=== PATIENT | male | born 1970 | race Caucasian/White ===

== ENCOUNTER 2017-07-29 16:12 | Emergency (ER) | payer OTHER ==
[2017-07-29 16:25] VITALS: RESP 16; TEMP 97.9
--- NOTE | 2017-07-29 17:52 | EDPHY ---
H & P Time Seen by Provider: 07/29/17 17:24 HPI/ROS: CHIEF COMPLAINT: Swollen lymph node HISTORY OF PRESENT ILLNESS: The patient is a 47-year-old male who presents to the emergency department reporting swollen lymph nodes on his anterior chest. Patient states he noticed small bumps over his sternum for the 1st time today. He recently had blood work which was normal. He denies any fevers or chills. No weight loss. No chest pain or shortness of breath. No other lymph nodes noted elsewhere. Patient states "I am a bit of a hypochondriac." REVIEW OF SYSTEMS: My complete review of systems is negative except as mentioned in the HPI. Past Medical/Surgical History: High cholesterol Past surgical history: Tonsillectomy, wisdom teeth Social history: Patient does not smoke Family history: The patient's mother had lung cancer. The patient's had breast cancer. Smoking Status: Never smoked Physical Exam: Vitals noted GENERAL: Well-appearing, in no acute distress, alert. HEENT: Eyes normal to inspection, normal pharynx, no signs of dehydration. NECK: [No thyromegaly, no lymphadenopathy, supple. RESPIRATORY: Clear to auscultation bilaterally, no rales, rhonchi or wheezing. CVS: Regular rate and rhythm, no rubs, murmurs, or gallops. Chest: Patient's chest appears normal. There is no mass or swelling. No erythema or warmth. No rash. I do not palpate any lymphadenopathy anteriorly. Patient is palpating his ribs when he states he is feeling the bumps. I feel slight irregularities but this seems consistent with rib. ABDOMEN: Soft, nontender, nondistended, no organomegaly. BACK: Normal to inspection, no CVA tenderness. SKIN: Normal color, no rash, warm, dry. No pallor. EXTREMITIES: No pedal edema, no calf tenderness, no Homans sign or cords, no joint swelling. NEURO/PSYCH: Alert and oriented x3, normal mood and affect, normal motor sensory exam. No obvious cranial nerve deficit. Constitutional: Initial Vital Signs Temperature (C) 36.6 C 07/29/17 16:22 Heart Rate 86 07/29/17 16:22 Respiratory Rate 16 07/29/17 16:22 Blood Pressure 130/75 H 07/29/17 16:22 O2 Sat (%) 98 12/24/17 16:22 O2 Delivery Mode Room Air Allergies/Adverse Reactions: Penicillins Allergy (Unknown, Unverified 07/29/17 16:21) Home Medications: Medication Instructions Recorded Atorvastatin Calcium [Lipitor 20 20 mg PO DAILY 07/29/17 mg (*)] Medical Decision Making ED Course/Re-evaluation: In the emergency department I discussed possible etiologies with the patient. At this time I do not feel he needs imaging or laboratory studies. I recommended the patient continue to feel the mass once a day for the next 2 weeks. He should then follow up with his primary care physician and informed him of his findings. He will return to the emergency department if he develops increasing swelling, fever, shortness of breath, rash or any other concerns. Differential Diagnosis: My differential includes but is not limited to lymphadenopathy, malignancy, abscess, cellulitis, normal exam Departure - Departure Disposition: Home, Routine, Self-Care Clinical Impression: Chest wall mass Condition: Good Instructions: Lymphadenopathy (ED) Additional Instructions: You should feel your chest once a day for the next 2 weeks. Follow up with Dr. Sherman and let him know of the masses changing size or shape. Return to the emergency department if you developed increased pain, swelling, redness, fever, shortness of breath or any other concerns. Referrals: Reuben Sherman MD [Primary Care Provider] - 5-7 days, if not improved
[2017-07-29 18:06] VITALS: BP 135/80; PULSE 66; O2SAT 95
== END 2017-07-29 18:06 | disposition home or self-care (01) ==
DX: R22.2 Localized swelling, mass and lump, trunk (principal)

== ENCOUNTER → 2017-09-06 | Outpatient (CLI) | payer OTHER | LOC: BMCIMAGING 07:14 | PROVIDERS: ATTEND Internal Medicine | DX: R22.1 Localized swelling, mass and lump, neck (principal) | CPT/HCPCS: 76536-PO ==

== ENCOUNTER → 2018-08-30 | Outpatient (CLI) | payer OTHER | LOC: BMCIMAGING 08:13 | PROVIDERS: ATTEND Physician Assistant Medical | DX: E04.1 Nontoxic single thyroid nodule (principal) | CPT/HCPCS: 76536-PO ==

== ENCOUNTER 2018-12-12 09:08 | Observation (INO) | payer OTHER ==
[2018-12-12 09:47] LABS: PLATELET COUNT 244 10^3/uL (150-400)
--- NOTE | 2018-12-12 09:59 | EDPHY ---
H & P Time Seen by Provider: 12/12/18 09:59 HPI/ROS: Chief complaint. Chest tightness HPI. 48-year-old male with chest pain for the past 3-4 days. 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 Training increased started 4 days ago. 3 days ago he started feeling heart palpitations. Since that time he has had fatigue and anxiety and left arm tingling with left anterior chest tightness. Symptoms are worse with walking. Better with lying down. History of SVT with ablation attempts x2. Increase calcium score and has been on a statin for 1 year no fever cough. No unusual leg pain or swelling ROS 10 systems were reviewed and negative with the exception of the elements mentioned in the history of present illness Past Medical/Surgical History: Family history negative for early coronary artery disease though strong history of dyslipidemia Dyslipidemia, SVT Social History: , nonsmoker, no alcohol Smoking Status: Never smoked Physical Exam: General Appearance: Alert well-developed male mild distress vital signs are stable Eyes: Pupils equal and round no pallor or injection. ENT, Mouth: Mucous membranes are moist. Respiratory: There are no retractions, lungs are clear to auscultation. Cardiovascular: Regular rate and rhythm. Gastrointestinal: Abdomen is soft and nontender, no masses, bowel sounds normal. Neurological: Awake and alert, sensory and motor exams grossly normal. Skin: Warm and dry, no rashes. Musculoskeletal: Neck is supple nontender. Extremities symmetrical, full range of motion. Psychiatric: Patient is oriented X 3, there is no agitation. Constitutional: Initial Vital Signs Temperature (C) 36.4 C 12/12/18 09:16 Heart Rate 71 12/12/18 09:16 Respiratory Rate 16 12/12/18 09:16 Blood Pressure 155/89 H 12/12/18 09:16 O2 Sat (%) 99 12/12/18 09:16 O2 Delivery Mode Room Air Allergies/Adverse Reactions: Penicillins Allergy (Unknown, Unverified 12/12/18 12:00) Hives bee stings Allergy (Uncoded 12/12/18 12:00) Home Medications: Medication Instructions Recorded Atorvastatin Calcium [Lipitor 20 20 mg PO DAILY@1730 07/29/17 mg (*)] ALPRAZolam [Xanax 0.5 MG (*)] 0.5 mg PO DAILY PRN 12/12/18 Acetaminophen [Tylenol 325mg (*)] 325 mg PO Q6 PRN 12/12/18 Aspirin [Aspirin 81mg (*)] 81 mg PO DAILY@1730 12/12/18 EPINEPHrine [Epipen 0.3 MG] 0.3 mg IM ONCE PRN 12/12/18 Medical Decision Making - Diagnostics EKG Interpretation: erpreted by me shows normal sinus rhythm normal interval and axis. QRS shows incomplete right bundle branch block and left anterior fascicular block. No significant ST elevation or depression. No arrhythmia. The rate is 52 Imaging Results: Imaging Impressions Chest X-Ray 12/12/18 10:20 Impression: Stable negative portable chest. One-view chest x-ray interpreted by me is normal Procedures: IV normal saline, monitor ED Course/Re-evaluation: Re-evaluation 11:00 a.m.. Patient is stable. He and I discussed imaging lab EKG findings. We discussed risk factors. We discussed the fact that his symptoms are worse with exertion and better with rest. We discussed outpatient versus inpatient evaluation. Patient would prefer inpatient evaluation . I consulted discussed case with hospitalist, who agrees to the admission Differential Diagnosis: This could be anxiety. I considered acute coronary syndrome. Patient really has not significant risk factors however his symptoms are worse with exertion better with rest. He has had cardiac issues in terms of electrical rhythm issues in the past. - Data Points Laboratory Results: Laboratory Results 12/12/18 09:30 12/12/18 09:30 12/12/18 12/12/18 12/12/18 09:31 09:30 09:30 WBC RBC Hgb Hct MCV MCH MCHC RDW Plt Count MPV Neut % (Auto) Lymph % (Auto) Cherry % (Auto) Eos % (Auto) Baso % (Auto) Nucleat RBC Rel Count Absolute Neuts (auto) Absolute Lymphs (auto) Absolute Monos (auto) Absolute Eos (auto) Absolute Basos (auto) Absolute Nucleated RBC Immature Gran % Immature Gran # Sodium 139 mEq/L mEq/L (135-145) Potassium 4.4 mEq/L mEq/L (3.5-5.2) Chloride 101 mEq/L mEq/L (97-110) Carbon Dioxide 28 mEq/l mEq/l (22-31) Anion Gap 10 mEq/L mEq/L (6-14) BUN 15 mg/dL mg/dL (7-23) Creatinine 0.8 mg/dL mg/dL (0.7-1.3) Estimated GFR > 60 Glucose 120 mg/dL H mg/dL (70-100) Calcium 9.8 mg/dL mg/dL (8.5-10.4) Total Bilirubin 0.6 mg/dL mg/dL (0.1-1.4) AST 40 IU/L IU/L (17-59) ALT 59 IU/L IU/L (21-72) Alkaline Phosphatase 107 IU/L IU/L (38-126) POC Troponin I 0.00 ng/mL ng/mL (0.00-0.08) Troponin I < 0.012 ng/mL ng/mL (0.000-0.034) Total Protein 8.0 g/dL g/dL (6.3-8.2) Albumin 4.7 g/dL g/dL (3.5-5.0) TSH 1.640 uIU/mL uIU/mL (0.465-4.680) 12/12/18 09:30 WBC 7.03 10^3/uL 10^3/uL (3.80-9.50) RBC 5.69 10^6/uL 10^6/uL (4.40-6.38) Hgb 16.3 g/dL g/dL (13.7-17.5) Hct 50.2 % % (40.0-51.0) MCV 88.2 fL fL (81.5-99.8) MCH 28.6 pg pg (27.9-34.1) MCHC 32.5 g/dL g/dL (32.4-36.7) RDW 12.8 % % (11.5-15.2) Plt Count 244 10^3/uL 10^3/uL (150-400) MPV 10.5 fL fL (8.7-11.7) Neut % (Auto) 62.6 % % (39.3-74.2) Lymph % (Auto) 26.6 % % (15.0-45.0) Cherry % (Auto) 8.7 % % (4.5-13.0) Eos % (Auto) 1.7 % % (0.6-7.6) Baso % (Auto) 0.1 % L % (0.3-1.7) Nucleat RBC Rel Count 0.0 % % (0.0-0.2) Absolute Neuts (auto) 4.40 10^3/uL 10^3/uL (1.70-6.50) Absolute Lymphs (auto) 1.87 10^3/uL 10^3/uL (1.00-3.00) Absolute Monos (auto) 0.61 10^3/uL 10^3/uL (0.30-0.80) Absolute Eos (auto) 0.12 10^3/uL 10^3/uL (0.03-0.40) Absolute Basos (auto) 0.01 10^3/uL L 10^3/uL (0.02-0.10) Absolute Nucleated RBC 0.00 10^3/uL 10^3/uL (0-0.01) Immature Gran % 0.3 % % (0.0-1.1) Immature Gran # 0.02 10^3/uL 10^3/uL (0.00-0.10) Sodium Potassium Chloride Carbon Dioxide Anion Gap BUN Creatinine Estimated GFR Glucose Calcium Total Bilirubin AST ALT Alkaline Phosphatase POC Troponin I Troponin I Total Protein Albumin TSH Point of Care Test Results: Chemistry 12/12/18 09:31 POC Troponin I 0.00 ng/mL ng/mL (0.00-0.08) Departure - Departure Disposition: [facility] Inpatient Acute Clinical Impression: Chest pain Qualifiers: Chest pain type: unspecified Qualified Code(s): R07.9 - Chest pain, unspecified Condition: Fair
--- NOTE | 2018-12-12 10:20 | CPEKG ---
Test Reason : OPEN Blood Pressure : / mmHG Vent. Rate : 052 BPM Atrial Rate : 051 BPM P-R Int : 139 ms QRS Dur : 104 ms QT Int : 430 ms P-R-T Axes : 072 -04 057 degrees QTc Int : 400 ms Sinus rhythm Probable left atrial enlargement Incomplete RBBB and LAFB Probable anteroseptal infarct, old Confirmed by Edi Rueda ([id number]) on 12/12/2018 10:20:02 AM Referred By: PHYSICIAN ED Confirmed By:Edi Rueda
[2018-12-12] MEDS ORDERED: ONDANSETRON 4 MG/2 ML VIAL IVP PRN (12:40)
[2018-12-12] MEDS ORDERED: ONDANSETRON DISINTEGRATING 4 MG TAB PO PRN (12:40)
[2018-12-12] MEDS ORDERED: ACETAMINOPHEN 325 MG TAB PO PRN ×2 (12:40→17:59)
--- NOTE | 2018-12-12 12:59 | PDGENHP ---
<Monae Hubbard - Last Filed: 12/12/18 13:16> History and Physical - Chief Complaint Fatigue, palpitations, chest tightness - History of Present Illness 48 y/o male w/hx of HLD and SVT w/attempted ablation x 2 presents 2/3-4 days worth of fatigue, palpitations, chest tightness w/left arm tingling. He is an active gentleman, runs at least 10 miles most days of the week and began to train on Sunday for 1/2 Iron [employer] which he has done in the past. On Sunday, he felt fatigue and "out of it." Throughout the days leading up to today, he experienced sternal chest tightness and left arm tingling and palpitations. Improves while lying down and worsens or is more noticeable w/activity. He isn' t sure if it is anxiety driven as he has noted in the past "I am bit of a hypochondriac," and admits holding his stress in the area of his discomfort. Denies nausea, CASPER, vomiting, diaphoresis. Initial EKG and troponin were unremarkable. Hx: Dr. Goodman at [facility] is his security escort. He had a treadmill stress test December 2017 that was unremarkable, had no CP or EKG changes. In 2016, he had a CT coronary Ca+ score of 48 w/findings in the LAD and he was placed above the 75th percentile for age and gender--he was started on Atorvastatin. In 2015, Echo was performed which was unremarkable. EP testing was also performed and was NSR and AV node function, no arrhythmias were induced except A-fib one time. History Information - Allergies/Home Medication List Allergies/Adverse Reactions: Penicillins Allergy (Unknown, Unverified 12/12/18 12:00) Hives bee stings Allergy (Uncoded 12/12/18 12:00) Home Medications: Atorvastatin Calcium [Lipitor 20 mg (*)] 20 mg PO DAILY@1730 07/29/17 [Last Taken 12/11/18] ALPRAZolam [Xanax 0.5 MG (*)] 0.5 mg PO DAILY PRN 12/12/18 [Last Taken Unknown] Acetaminophen [Tylenol 325mg (*)] 325 mg PO Q6 PRN 12/12/18 [Last Taken Unknown] Aspirin [Aspirin 81mg (*)] 81 mg PO DAILY@173 12/12/18 [Last Taken 12/11/18] EPINEPHrine [Epipen 0.3 MG] 0.3 mg IM ONCE PRN 12/12/18 [Last Taken Unknown] I have personally reviewed and updated: family history, medical history, social history, surgical history - Past Medical History hyperlipidemia Additional medical history: Anxiety, SVT w/ablation - Surgical History Reports: ablation Additional surgical history: Tonsillectomy - Family History Positive for: cancer (Mother of lung cancer 2 years ago), CAD - Social History Smoking Status: Never smoked Alcohol Use: Rarely Drug Use: None Additional social history: . Very active running and biking. Currently training for 1/2 Iron [employer]. Does not have too much caffeine, stopped drinking coffee a month ago because it made him feel anxious; does drink Coke nightly after work and eats [employer] chocolate. He admits to being somewhat more stressed d/t his who endured 2 bouts of breast cancer, his 2 kids and still overcoming the fact his parents 2 years ago. Review of Systems Review of Systems: ROS: 10pt was reviewed & negative except for what was stated in HPI & below Physical Exam Physical Exam: Lab data and imaging were reviewed. White blood count: 7.03 Hemoglobin hematocrit: 16.3 and 50.2 Platelet count: 244 Sodium: 139 Potassium: 4.4 Chloride: 101 Carbon dioxide: 28 BUN/Cr: 15/0.8 Troponin: 0.00 Chest x-ray: Negative for any acute pulmonary processes EKG: Normal sinus rhythm, left anterior fascicular block. No significant changes when comparing previous EKG on file in 2016. Temp Pulse Resp BP Pulse Ox 36.5 C 58 L 16 127/76 H 98 12/12/18 11:35 12/12/18 11:35 12/12/18 11:35 12/12/18 11:35 12/12/18 11:35 Constitutional: no apparent distress, appears nourished, not in pain Eyes: PERRL, anicteric sclera, EOMI Ears, Nose, Mouth, Throat: moist mucous membranes, hearing normal, ears appear normal, no oral mucosal ulcers Cardiovascular: regular rate and rhythym, no murmur, rub, or gallop, No edema Peripheral Pulses: 2+: dorsalis-pedis (R), dorsalis-pedis (L) Respiratory: no respiratory distress, no rales or rhonchi, clear to auscultation Gastrointestinal: normoactive bowel sounds, soft, non-tender abdomen, no palpable masses Genitourinary: no bladder fullness, no bladder tenderness Skin: warm, normal color, no rashes or abrasions, no fluctuance, no induration, No mottled Musculoskeletal: full muscle strength, no muscle tenderness, normal joint ROM, no joint effusions Neurologic: AAOx3, sensation intact bilaterally, CN II-XII Intact Psychiatric: interacting appropriately, not anxious, not encephalopathic, thought process linear Lymph, Heme, Immunologic: no cervical LAD, no supraclavicular LAD Lab Data & Imaging Review 12/12/18 09:30 12/12/18 09:30 WBC 7.03 10^3/uL (3.80-9.50) 12/12/18 09: RBC 5.69 10^6/uL (4.40-6.38) 12/12/18 09:30 Hgb 16.3 g/dL (13.7-17.5) 12/12/18 09:30 Hct 50.2 % (40.0-51.0) 12/12/18 09:30 MCV 88.2 fL (81.5-99.8) 12/12/18 09:30 MCH 28.6 pg (27.9-34.1) 12/12/18 09: MCHC 32.5 g/dL (32.4-36.7) 12/12/18 09: RDW 12.8 % (11.5-15.2) 12/12/18 09:30 Plt Count 244 10^3/uL (150-400) 12/12/18 09:30 MPV 10.5 fL (8.7-11.7) 12/12/18 09:30 Neut % (Auto) 62.6 % (39.3-74.2) 12/12/18 09:30 Lymph % (Auto) 26.6 % (15.0-45.0) 12/12/18 09:30 Edwards % (Auto) 8.7 % (4.5-13.0) 12/12/18 09:30 Eos % (Auto) 1.7 % (0.6-7.6) 12/12/18 09:30 Baso % (Auto) 0.1 % (0.3-1.7) L 12/12/18 09:30 Nucleat RBC Rel Count 0.0 % (0.0-0.2) 12/12/18 09:30 Absolute Neuts (auto) 4.40 10^3/uL (1.70-6.50) 12/12/18 09:30 Absolute Lymphs (auto) 1.87 10^3/uL (1.00-3.00) 12/12/18 09:30 Absolute Monos (auto) 0.61 10^3/uL (0.30-0.80) 12/12/18 09:30 Absolute Eos (auto) 0.12 10^3/uL (0.03-0.40) 12/12/18 09:30 Absolute Basos (auto) 0.01 10^3/uL (0.02-0.10) L 12/12/18 09:30 Absolute Nucleated RBC 0.00 10^3/uL (0-0.01) 12/12/18 09:30 Immature Gran % 0.3 % (0.0-1.1) 12/12/18 09:30 Immature Gran # 0.02 10^3/uL (0.00-0.10) 12/12/18 09:30 Sodium 139 mEq/L (135-145) 12/12/18 09:30 Potassium 4.4 mEq/L (3.5-5.2) 12/12/18 09:30 Chloride 101 mEq/L (97-110) 12/12/18 09:30 Carbon Dioxide 28 mEq/l (22-31) 12/12/18 09:30 Anion Gap 10 mEq/L (6-14) 12/12/18 09:30 BUN 15 mg/dL (7-23) 12/12/18 09:30 Creatinine 0.8 mg/dL (0.7-1.3) 12/12/18 09:30 Estimated GFR > 60 12/12/18 09:30 Glucose 120 mg/dL (70-100) H 12/12/18 09:30 Calcium 9.8 mg/dL (8.5-10.4) 12/12/18 09:30 Total Bilirubin 0.6 mg/dL (0.1-1.4) 12/12/18 09:30 AST 40 IU/L (17-59) 12/12/18 09:30 ALT 59 IU/L (21-72) 12/12/18 09:30 Alkaline Phosphatase 107 IU/L (38-126) 12/12/18 09:30 POC Troponin I 0.00 ng/mL (0.00-0.08) 12/12/18 09:31 Troponin I < 0.012 ng/mL (0.000-0.034) 12/12/18 09:30 Total Protein 8.0 g/dL (6.3-8.2) 12/12/18 09:30 Albumin 4.7 g/dL (3.5-5.0) 12/12/18 09:30 Assessment & Plan Plan: 48-year-old male with history of hyperlipidemia and SVT with attempts of ablation presents to the emergency room with 4 days worth of fatigue, palpitations, chest tightness, and left arm tingling. His vital signs upon presentation to the emergency room are the following: Blood pressure 155/89, heart rate 71, respirations 16, temperature 36.4 degrees, oxygen saturation on room air 99%. His current vital signs are the following: Blood pressure 127/76 , heart rate 58, respirations 16, temperature 36.5 degrees, oxygen saturation on room air 98%. #Chest pain: Heart score 3 (age, atherosclerosis) -Unclear whether symptoms correlate w/cardiac or anxiety-driven -Will perform CT Coronary w/Calcium score and Echo -Cycling one more troponin and checking TSH -If testing is unremarkable, I contacted Hilary WONG for [facility] to set pt up w/event monitor and f/u w/Dr. Umanzor. He may then be discharged tonight. Diet: Cardiac VTE PPX: Low risk, OOB ad tania Code: Full Dispo: Admit to observation, possible discharge later tonight pending results of imaging and lab work <Gunner Francois - Last Filed: 12/12/18 16:16> History and Physical - History of Present Illness Review of Systems Review of Systems: Physical Exam Physical Exam: Temp Pulse Resp BP Pulse Ox 36.6 C 52 L 16 103/72 94 12/12/18 14:31 12/12/18 14:31 12/12/18 14:31 12/12/18 14:31 12/12/18 14:31 Lab Data & Imaging Review 12/12/18 09:30 12/12/18 09:30 WBC 7.03 10^3/uL (3.80-9.50) 12/12/18 09:30 RBC 5.69 10^6/uL (4.40-6.38) 12/12/18 09:30 Hgb 16.3 g/dL (13.7-17.5) 12/12/18 09:30 Hct 50.2 % (40.0-51.0) 12/12/18 09:30 MCV 88.2 fL (81.5-99.8) 12/12/18 09:30 MCH 28.6 pg (27.9-34.1) 12/12/18 09: MCHC 32.5 g/dL (32.4-36.7) 12/12/18 09: RDW 12.8 % (11.5-15.2) 12/12/18 09: Plt Count 244 10^3/uL (150-400) 12/12/18 09: MPV 10.5 fL (8.7-11.7) 12/12/18 09:30 Neut % (Auto) 62.6 % (39.3-74.2) 12/12/18 09:30 Lymph % (Auto) 26.6 % (15.0-45.0) 12/12/18: Edwards % (Auto) 8.7 % (4.5-13.0) 12/12/18: Eos % (Auto) 1.7 % (0.6-7.6) 12/12/18 09:30 Baso % (Auto) 0.1 % (0.3-1.7) L 12/12/18: Nucleat RBC Rel Count 0.0 % (0.0-0.2) 12/12/18 09:30 Absolute Neuts (auto) 4.40 10^3/uL (1.70-6.50) 12/12/18 09:30 Absolute Lymphs (auto) 1.87 10^3/uL (1.00-3.00) 12/12/18 09:30 Absolute Monos (auto) 0.61 10^3/uL (0.30-0.80) 12/12/18 09:30 Absolute Eos (auto) 0.12 10^3/uL (0.03-0.40) 12/12/18 09:30 Absolute Basos (auto) 0.01 10^3/uL (0.02-0.10) L 12/12/18 09:30 Absolute Nucleated RBC 0.00 10^3/uL (0-0.01) 12/12/18 09:30 Immature Gran % 0.3 % (0.0-1.1) 12/12/18 09:30 Immature Gran # 0.02 10^3/uL (0.00-0.10) 12/12/18 09:30 Sodium 139 mEq/L (135-145) 12/12/18 09:30 Potassium 4.4 mEq/L (3.5-5.2) 12/12/18 09:30 Chloride 101 mEq/L (97-110) 12/12/18 09:30 Carbon Dioxide 28 mEq/l (22-31) 12/12/18 09:30 Anion Gap 10 mEq/L (6-14) 12/12/18 09:30 BUN 15 mg/dL (7-23) 12/12/18 09:30 Creatinine 0.8 mg/dL (0.7-1.3) 12/12/18 09:30 Estimated GFR > 60 12/12/18:30 Glucose 120 mg/dL (70-100) H 12/12/18:30 Calcium 9.8 mg/dL (8.5-10.4) 12/12/18 09:30 Total Bilirubin 0.6 mg/dL (0.1-1.4) 12/12/18 09:30 AST 40 IU/L (17-59) 12/12/18:30 ALT 59 IU/L (21-72) 12/12/18 09:30 Alkaline Phosphatase 107 IU/L (38-126) 12/12/18 09:30 POC Troponin I 0.00 ng/mL (0.00-0.08) 12/12/18:31 Troponin I < 0.012 ng/mL (0.000-0.034) 05/09/19 09:30 Total Protein 8.0 g/dL (6.3-8.2) 12/12/18 09:30 Albumin 4.7 g/dL (3.5-5.0) 12/12/18 09:30 TSH 1.640 uIU/mL (0.465-4.680) 12/12/18 09:30 Assessment & Plan Assessment: Patient seen and discussed with Caprice Hubbard NP. I agree with her H&P. Admitting for fatigue, chest tightness, palpitations. Plan for CT cor, echo, outpatient rhythm monitoring. May be able to discharge later if studies ok.
[2018-12-12 14:32] VITALS: BP 103/72
--- NOTE | 2018-12-12 15:11 | ECHO ---
[email or web address] [address] Main: [phone] Echocardiography Examination Transthoracic Name: MEETA CHADWICK MR#: [id number] Study Date: 12/12/2018 Study Time: 01:25 PM Date of : 1970 Age: 48 year(s) Height: 170.2 cm (67 in.) Weight: 59.87 kg (132 lb.) BSA: 1.69 m2 Gender: Male Examination: Echo Contrast: Image Quality: Rhythm: Normal sinus rhythm Heart Rate: 57 bpm BP: 129 mmHg/87 mmHg Indication: CP with Exertion, RBBB Procedure Staff Referring Physician: Prescriptionist: Gabo Ng RDCS Reading Physician: You Pang MD Requesting Provider: Ordering Physician: Monae Hubbard Indication: CP with Exertion, RBBB Measurements Chambers AV/MV Label Value Normal Value Label Value Normal Value LVOT Vmax 0.66 m/s (0.7m/s - 1.1m/s) AV PGmax 6 mmHg LVOT VTI 13.4 cm (18cm - 22cm) AV PGmean 3 mmHg LVDd, MM 4.6 cm (4.2cm - 5.9cm) AV Vmax 1.18 m/s LVDd, 2D 4.7 cm (4.2cm - 5.9cm) MV E Vmax 0.56 m/s LVDs, MM 2.9 cm (2cm - 3.8cm) MV A Vmax 0.31 m/s LVDs, 2D 2.8 cm (2.1cm - 4cm) MV E/A 1.81 IVSd, MM 1.1 cm (0.6cm - 0.9cm) TV/PV IVSd, 2D 0.8 cm (0.6cm - 1.1cm) Label Value Normal Value LVPWd, MM 1 cm (0.6cm - 1cm) PV PGmax 3 mmHg LVPWd, 2D 0.8 cm (0.6cm - 1cm) PV Vmax, Caliper 0.84 m/s (0.6m/s - 0.9m/s) LVEF, 2D 72 % (54% - 74%) LVOT PGmean 1 mmHg LVOT Vmean 0.38 m/s RVDd, 2D 2 cm (1.9cm - 3.8cm) Additional Vessels Label Value Normal Value AoRoot, MM 3.2 cm (2.2cm - 3.7cm) Patient: MEETA CHADWICK Study Date: 12/12/2018 Page 1 of 2 01:25 PM Conclusions (1) Left ventricular systolic ejection fraction was normal (70%) - septal wall motion consistent with BBB - diastolic dysfunction was present (2) Normal RV size and function (3) Normal atrial dimensions (4) Trivial MR (5) Trileaflet aortic valve without sclerosis or insufficiency (6) Grossly normal tricuspid valve - RVSP was normal (7) Aorta dimensions were normal (8) No pericardial effusion Findings Left Ventricle: Left ventricle is normal in size. The EF is visually estimated to be 70 %. EF range is estimated at 65 % - 70 %. Left ventricle wall thickness is normal. There is paradoxic septal motion suggestive of bundle branch block, paced cardiac rhythm, or prior cardiac surgery. Grade I Diastolic Dysfunction. Right Ventricle: Normal size right ventricle. Right ventricular systolic function is normal. Left Atrium: The left atrium is normal in size. Right Atrium: The right atrium is normal in size. Mitral Valve: Mitral valve appears structurally normal. Trivial mitral regurgitation. Aortic Valve: Aortic leaflets are normal in appearance and function. No aortic valve regurgitation. The aortic valve is trileaflet. Tricuspid Valve: Tricuspid valve leaflets are normal in appearance and function. No tricuspid regurgitation. Pulmonic Valve: Pulmonic leaflets are normal in appearance and function. No pulmonic valve regurgitation is evident. Aorta: The aorta is normal. The aortic root size in M-mode measures 3.2 cm. Aorta Measurements AoRoot, MM is 3.2 cm. Pericardium: No pericardial effusion. Exam Details Procedure Ordered: Echo Facility Location: Emergency Room (No Signature Object) Patient: MEETA CHADWICK Study Date: 12/12/2018 Page 2 of 2 01:25 PM [id number]
[2018-12-12] MEDS ORDERED: IOPAMIDOL (ISOVUE-370) 150 ML BTL IV ONE (16:24)
[2018-12-12] MEDS ORDERED: NITROGLYCERIN 0.4 MG BTL SL ONE (16:53)
[2018-12-12] MEDS ORDERED: Epinephrine [Epipen 0.3 Mg] IM PRN (17:59)
[2018-12-12] MEDS ORDERED: ALPRAZolam 0.25 MG TAB PO PRN (17:59)
--- NOTE | 2018-12-12 18:30 | GDS ---
[f rep st] DISCHARGE SUMMARY FINAL DIAGNOSES: 1. Fatigue, nonexertional chest pain. 2. Coronary artery disease by computerized tomography coronary. 3. Palpitations. HOSPITAL COURSE: 48-year-old man admitted with somewhat nonspecific symptoms. He has been training for a triathlon. At the end of the day, not while he is exerting himself, he does sometimes get some chest discomfort. He was quite nervous about his symptoms. He underwent a CT coronary which did sh ow a proximally 30% to 45% stenosis of the proximal LAD and discussed with Cardiology who does not fe el that this would be symptomatic, although should be treated medically. He is already on appropriat e therapy, including aspirin, as well as atorvastatin 20 mg. His last LDL was 60. He underwent an e chocardiogram which showed grade 1 diastolic dysfunction, no LVH, unremarkable valves. He is safe fo r discharge. We will facilitate him picking up a ZIO Patch tomorrow given his history of palpitation s, as well as SVT, status post unsuccessful ablation. He is comfortable with this plan. He was atiya tored on telemetry. He had 1 PVC on telemetry while he was here, nothing else more malignant. He wi ll follow up with Dr. Umanzor after he has completed monitoring by ZIO Patch. He will continue his aspir in and statin. He has a physical next week and should have his lipids checked then. /[id number]/MODL
[2018-12-13] MEDS ORDERED: ASPIRIN 81 MG CHEWABLE TAB PO SCH (17:30)
[2018-12-13] MEDS ORDERED: ATORVASTATIN CALCIUM 20 MG TAB PO SCH (17:30)
== END 2018-12-12 18:30 | disposition home or self-care (01) ==
LOC: INTOOBSV 11:17 → F2W 14:20
PROVIDERS: ADMIT Student in an Organized Health Care Education/Training Program; ATTEND Student in an Organized Health Care Education/Training Program
DX: R07.9 Chest pain, unspecified (principal); I25.10 Atherosclerotic heart disease of native coronary artery without angina pectoris; R00.2 Palpitations
CPT/HCPCS: 71045; 75574; 93005; 93306; 99285; G0378; 84484-ER; Q9967